=== PATIENT | male | born 1965 | race Caucasian/White ===

== ENCOUNTER 2017-11-04 12:58 | Inpatient (IN) | payer MEDICAID ==
[~2017-11-04] VITALS: Ht 177.8 cm; Wt 103.0 kg
[2017-11-04] MEDS ORDERED: ACETAMINOPHEN 325 MG TABLET ONE (13:27)
[2017-11-04] MEDS ORDERED: ACETAMINOPHEN 325 MG TABLET PO ONE (13:30)
[2017-11-04 13:37] LABS: BASOPHILS # (AUTO) 0.2 /CMM (0.0-0.2); BASOPHILS % (AUTO) 1.4 % (0.0-2.0); EOSINOPHILS # (AUTO) 0.1 /CMM (0.0-0.7); EOSINOPHILS % (AUTO) 0.6 % (0.0-6.0); HEMATOCRIT 29 % (39-51); HEMOGLOBIN 9.9 g/dL (13.5-17.5); LYMPHOCYTES # (AUTO) 0.5 /CMM (0.8-4.8); MEAN CORPUSCULAR HEMOGLOBIN 29 PG (26.0-33.0); MEAN CORPUSCULAR HGB CONC 34 g/dl (31.0-36.0); MEAN CORPUSCULAR VOLUME 86 fL (80-96); MONOCYTES # (AUTO) 1.5 /CMM (0.1-1.30); MONOCYTES % (AUTO) 8.7 % (2.0-12.0); NEUTROPHILS # (AUTO) 14.7 /CMM (1.8-8.9); NEUTROPHILS % (AUTO) 86.3 % (43.0-81.0); PLATELET COUNT (AUTO) 561 /CMM (150-450); RDW COEFFICIENT OF VARIATION 15.2 (11.5-15.0); RED BLOOD CELL COUNT(AUTO) 3.41 MIL/uL (4.5-6.0)
[2017-11-04 13:46] LABS: CALCIUM, SERUM 9.1 mg/dL (8.5-10.1); POTASSIUM 3.9 mmol/L (3.5-5.1)
[2017-11-04 13:48] LABS: CREATININE 9.4 mg/dL (0.6-1.3)
[2017-11-04 13:51] LABS: INR 1.21 (0.85-1.15)
[2017-11-04 14:52] LABS: APPEARANCE,URINE CLEAR (CLEAR); BILIRUBIN,URINE NEGATIVE (NEGATIVE); BLOOD, URINE 1+ Ery/uL (NEGATIVE); COLOR,URINE YELLOW (YELLOW); KETONES,URINE 1+ (NEGATIVE); LEUKOCYTE ESTERASE ,URINE NEGATIVE (NEGATIVE); NITRITE, URINE NEGATIVE (NEGATIVE); PH,URINE 8.5 (5.0-8.0); PROTEIN,URINE 3+ mg/dl (NEGATIVE); UGLUCOSE TRACE mg/dL (NEGATIVE); UROBILINOGEN,URINE 0.2 EU/dL (0.2)
[2017-11-04 14:56] LABS: BAND % (MANUAL) 2 % (0.0-5.0); LYMPHOCYTES % (MANUAL) 2 % (16-48); MONOCYTES % (MANUAL) 6 % (0-11.0); NEUTROPHILS % (MANUAL) 90 (42-76)
[2017-11-04 15:01] LABS: BACTERIA,URINE Few /HPF (None Seen); RBC,URINE 0-2 /HPF (0-2); SQUAMOUS EPITHELIAL CELL,UR Few /HPF (None Seen)
[2017-11-04] MEDS ORDERED: DEXAMETHASONE SOD PHOSPHATE 10 MG/ML VIAL IV ONE (16:30)
[2017-11-04] MEDS ORDERED: CLINDAMYCIN 600 MG in IV D5W 100 ML IV ONE (16:30)
[2017-11-04] MEDS ORDERED: DEXAMETHASONE SOD PHOSPHATE 10 MG/ML VIAL ONE (16:33)
[2017-11-04] MEDS ORDERED: IOHEXOL-300 100 ML VIAL IV ONE (16:38)
[2017-11-04] MEDS ORDERED: IV NS 0.9% 250 ML IV ONE (16:39)
[2017-11-04] MEDS ORDERED: DEXL30CA3 PO (18:43)
[2017-11-04] MEDS ORDERED: SEVE800T7 PO (18:43)
[2017-11-04] MEDS ORDERED: AMLO5TAB2 PO (18:43)
[2017-11-04] MEDS ORDERED: METO-356 PO (18:43)
[2017-11-04] MEDS ORDERED: ASPI-1169 PO (18:43)
[2017-11-04] MEDS ORDERED: MORPHINE SULFATE INJ 4 MG/ML DISP.SYRIN IV PRN (19:30)
[2017-11-04] MEDS ORDERED: ONDANSETRON HCL/PF 4 MG/2 ML VIAL IV PRN (19:30)
[2017-11-04] MEDS ORDERED: ACETAMINOPHEN 325 MG TABLET PO PRN (19:30)
[2017-11-04] MEDS ORDERED: HYDROCODONE/APAP 5/325MG 1 EACH TABLET PO PRN (19:30)
[2017-11-04 20:00] VITALS: BP 132/66
[2017-11-04 20:44] VITALS: BP 132/86
[2017-11-04] MEDS: PIPERACILLIN /TAZOBACTAM 2.25 G in IV D5W 50 ML IV SCH (21:59)
[2017-11-05] VITALS: BP_SYST 130; BP_SYST 153; BP_DIAS 79; BP_DIAS 80
[2017-11-05 04:00] VITALS: BP 136/82
[2017-11-05] MEDS: PIPERACILLIN /TAZOBACTAM 2.25 G in IV D5W 50 ML IV SCH ×2 (05:17→12:09)
[2017-11-05 06:00] VITALS: BP 136/82
[2017-11-05 06:18] LABS: HEMATOCRIT 26 % (39-51); HEMOGLOBIN 8.6 g/dL (13.5-17.5); LYMPHOCYTES # (AUTO) 0.4 /CMM (0.8-4.8); LYMPHOCYTES % (AUTO) 2.6 % (20.0-44.0); MEAN CORPUSCULAR HEMOGLOBIN 29 PG (26.0-33.0); MEAN CORPUSCULAR HGB CONC 33 g/dl (31.0-36.0); MEAN CORPUSCULAR VOLUME 86 fL (80-96); MONOCYTES # (AUTO) 0.6 /CMM (0.1-1.30); MONOCYTES % (AUTO) 3.6 % (2.0-12.0); NEUTROPHILS # (AUTO) 14.8 /CMM (1.8-8.9); NEUTROPHILS % (AUTO) 93.8 % (43.0-81.0); PLATELET COUNT (AUTO) 456 /CMM (150-450); RDW COEFFICIENT OF VARIATION 15.8 (11.5-15.0); RED BLOOD CELL COUNT(AUTO) 2.98 MIL/uL (4.5-6.0); WHITE BLOOD COUNT (AUTO) 15.8 K/uL (4.3-11.0)
[2017-11-05 06:36] LABS: CALCIUM, SERUM 8.5 mg/dL (8.5-10.1); MAGNESIUM 2.2 mg/dL (1.8-2.4); PHOSPHORUS 6.4 mg/dL (2.5-4.9); POTASSIUM 4.6 mmol/L (3.5-5.1)
[2017-11-05 06:38] LABS: CREATININE 11.4 mg/dL (0.6-1.3)
[2017-11-05 07:39] LABS: BAND % (MANUAL) 2 % (0.0-5.0); LYMPHOCYTES % (MANUAL) 4 % (16-48); MONOCYTES % (MANUAL) 2 % (0-11.0); NEUTROPHILS % (MANUAL) 92 (42-76)
[2017-11-05 08:00] VITALS: BP 133/75
[2017-11-05] MEDS: SEVELAMER CARBONATE 800 MG TABLET PO SCH ×2 (08:33→12:11)
[2017-11-05 08:35] VITALS: BP 133/75
[2017-11-05] MEDS ORDERED: AMLODIPINE BESYLATE 5 MG TABLET PO SCH (09:00)
[2017-11-05] MEDS ORDERED: Medication Not On Formulary EA (Dexlansoprazole (Dexilant) 30 MG) PO SCH (09:00)
[2017-11-05] MEDS ORDERED: ASPIRIN 81 MG TAB.CHEW PO SCH (09:00)
[2017-11-05] MEDS ORDERED: METOPROLOL SUCCINATE 25 MG TAB.SR.24H PO SCH (09:00)
[2017-11-05] MEDS ORDERED: DEXAMETHASONE SOD PHOSPHATE 4 MG/ML VIAL IV SCH (09:00)
== END 2017-11-05 14:04 | disposition home or self-care (01) | DRG 113 ==
LOC: ER 13:00 → TELE1 18:32 → MEDSG1 11-05 09:38
PROVIDERS: ADMIT Internal Medicine Nephrology; ATTEND Internal Medicine Nephrology
DX: J03.90 Acute tonsillitis, unspecified (principal); N18.6 End stage renal disease; K04.7 Periapical abscess without sinus; I13.11 Hypertensive heart and chronic kidney disease without heart failure, with stage 5 chronic kidney disease, or end stage renal disease; Z99.2 Dependence on renal dialysis; E83.9 Disorder of mineral metabolism, unspecified; D64.9 Anemia, unspecified
CPT/HCPCS: 36415; 70490-TC; 70491-TC; 71045-TC; 80048-TC; 81000-TC; 83605-TC; 83735-TC; 84100-TC; 85025-TC; 85730-TC; 87040-TC; 87070-TC; 87081-TC; 87086-TC; A4606; J1100; J2543; J3490; J7050; J7060; Q9967; Z7610

== ENCOUNTER 2017-11-08 12:43 | Inpatient (IN) | payer MEDICAID ==
[~2017-11-08] VITALS: Ht 177.8 cm; Wt 99.8 kg
[~2017-11-08 12:43] MED LIST: AMLO5TAB7 PO; ASPI-1169 PO; DEXL30CA3 PO; METO-356 PO; SEVE800T7 PO
--- NOTE | 2017-11-08 12:43 | NUR ---
SENT BY DR. DAWSON, RIGHT FACIAL SWELLING/PAIN, SORE THROAT TAKING AMOXIL WITH NO RELIEF
--- NOTE | 2017-11-08 13:12 | NUR ---
CALLED [facility] [phone] ITS AMAN
[2017-11-08 13:29] LABS: BASOPHILS % (AUTO) 0.1 % (0.0-2.0); EOSINOPHILS % (AUTO) 0.3 % (0.0-6.0); HEMATOCRIT 30 % (39-51); HEMOGLOBIN 9.6 g/dL (13.5-17.5); LYMPHOCYTES % (AUTO) 7.5 % (20.0-44.0); MEAN CORPUSCULAR HGB CONC 33 g/dl (31.0-36.0); MEAN CORPUSCULAR VOLUME 87 fL (80-96); MONOCYTES # (AUTO) 1.4 /CMM (0.1-1.30); MONOCYTES % (AUTO) 9.9 % (2.0-12.0); NEUTROPHILS # (AUTO) 11.2 /CMM (1.8-8.9); NEUTROPHILS % (AUTO) 82.2 % (43.0-81.0); PLATELET COUNT (AUTO) 544 /CMM (150-450); RDW COEFFICIENT OF VARIATION 16.3 (11.5-15.0); RED BLOOD CELL COUNT(AUTO) 3.41 MIL/uL (4.5-6.0); WHITE BLOOD COUNT (AUTO) 13.7 K/uL (4.3-11.0)
[2017-11-08] MEDS ORDERED: VANCOMYCIN 1 GM in IV D5W 250 ML IV ONE (13:30)
[2017-11-08] MEDS ORDERED: PIPERACILLIN /TAZOBACTAM 3.375 G in IV D5W 50 ML IV ONE (13:30)
[2017-11-08] MEDS ORDERED: AMOX500C2 PO (13:37)
--- NOTE | 2017-11-08 13:40 | NUR ---
REPORT GIVEN TO TITUS BECKFORD FOR JENNIFER UPON ADMISSION
[2017-11-08 13:46] LABS: CALCIUM, SERUM 8.4 mg/dL (8.5-10.1); CREATININE 7.2 mg/dL (0.6-1.3); POTASSIUM 3.5 mmol/L (3.5-5.1)
[2017-11-08 13:53] LABS: INR 1.06 (0.87-1.13)
[2017-11-08] MEDS ORDERED: FEE PK DOSING 1 MIN EA MC ONE (14:59)
[2017-11-08] MEDS ORDERED: VANCOMYCIN 500 MG in IV D5W 100 ML IV PRN (15:00)
--- NOTE | 2017-11-08 15:48 | NUR ---
MS RN ADMITTING NOTES PATIENT ADMITTED TO UNIT VIA GURNEY AT 1400. ALERT AND ORIENTED X4, AMBULATORY AND VERBALLY RESPONSIVE WITH NO C/O PAIN OR DISCOMFORTS AT THIS TIME. PATIENT ORIENTED TO UNIT AND TO HIS ROOM. PT WITH DIAGNOSIS OF RIGHT FACE INFECTION AND RENAL FAILURE. V/S CHECKD: BP 126/67, P 123, R 20, T 98.7 AND SP02 96%. HEAD TO TOE ASSESSMENT DONE. PT WITH INTACT SKIN, NOTED WITH RIGHT FACE SWELLING ( PHOTO TAKEN AND FILED ON CHART), WITH B/L KNEE NON-PITTING EDEMA +1, B/L FOOT NON-PITTING EDEMA +1. PT WITH IV ACCESS ON RIGHT AC G#20 AND PERMA-CATHETER ON UPPER RIGHT CHEST WALL. HE GOES TO HEMODIALYSIS 3X A WEEK AND HAD DIALYSIS TODAY. ALL SAFETY MEASURES INITIATED, BED PLACED ON LOW/LOCKED POSITION, CALL LIGHT AND BEDSIDE TABLE PLACED WITHIN PT'S REACH. WILL CONTINUE TO MONITOR PT.
[2017-11-08 15:51] VITALS: BP 126/75
[2017-11-08] MEDS: SEVELAMER CARBONATE 800 MG TABLET PO SCH (17:13)
[2017-11-08] MEDS: METOPROLOL SUCCINATE 25 MG TAB.SR.24H PO SCH (17:13)
[2017-11-08] MEDS: methylPREDNISolone SOD SUCC 40 MG/ML VIAL IV SCH (17:14)
--- NOTE | 2017-11-08 18:49 | NUR ---
MS RN CLOSING NOTES PATIENT AWAKE AND WATCHING TV IN BED. A/O X 4. AMBULATORY AND ABLE TO VERBALIZED NEEDS. RIGHT SIDE OF PT'S FACE REMAINS SWOLLEN, DRY AND WARM TO TOUCH. ON ROOM AIR, TOLERATING WELL WITH NO SOB NOTED. IV ACCESS ON LEFT AC INTACT AND PATENT, FLUSHES EASILY. HD CATHETER ON RIGHT UPPER CHEST WALL IN PLACE, PT S/P HD TODAY WITH NO DELAYED ADVERSE REACTIONS NOTED. BED IN LOW/LOCKED POSITION. CALL LIGHT AND BEDSIDE TABLE KEPT WITHIN PT'S REACH. ALL NEEDS AND CARE ATTENDED WELL. WILL ENDORSED TO LOG CUT OFF SAWYER NURSE FOR JENNIFER.
--- NOTE | 2017-11-08 19:30 | NUR ---
MS RN NOTES RECEIVED A/O X4,SITTING ON EDGE OF BED,DENIES PAIN,WITH RIGHT UPPER CW AFUA CATH FOR HD ACCESS,SALINE LOC LAC INTACT AND PATENT.AMBULATORY,HAD HD THIS MORNING SCHEDULED.CALL LIGHT IN REACH,NEEDS ANTICIPATED.
[2017-11-08 20:00] VITALS: BP_SYST 118; BP_SYST 141; BP_DIAS 81; BP_DIAS 82
[2017-11-08] MEDS: PIPERACILLIN /TAZOBACTAM 2.25 G in IV D5W 50 ML IV SCH (21:01)
--- NOTE | 2017-11-09 01:00 | NUR ---
MS RN NOTES SOUND ASLEEP,KEPT WARM AND COMFORTABLE.
[2017-11-09] MEDS: PIPERACILLIN /TAZOBACTAM 2.25 G in IV D5W 50 ML IV SCH ×3 (04:55→20:45)
--- NOTE | 2017-11-09 06:14 | NUR ---
MS RN NOTES FAIRLY RESTED AT NOC,IV ABX TOLERATED WELL.DENIES PAIN.SALINE LOCK LEFT AC REMAINS PATENT.CALL LIGHT IN REACH,NEEDS ATTENDED.WILL ENDORSE TO DAY NURSE FOR JENNIFER.
--- NOTE | 2017-11-09 07:48 | NUR ---
MS RN OPENING NOTE PATIENT IS ALERT AND ORIENTED x4. NO PAIN AT THIS TIME. NO SOB OR DISTRESS NOTED. CALL LIGHT WITHIN REACH. SAFETY MEASURES IMPLEMENTED. ABLE TO COMMUNICATE NEEDS. IV INTACT AND PATENT NO REDNESS OR SWELLING NOTED. RIGHT UPPER CHEST WALL HD CATHETER CLEAN, DRY AND INTACT. WILL CONTINUE TO MONITOR THROUGHOUT SHIFT
[2017-11-09 08:00] VITALS: BP 119/72
[2017-11-09] MEDS: PANTOPRAZOLE 40 MG TABLET.DR PO SCH (08:14)
[2017-11-09] MEDS: SEVELAMER CARBONATE 800 MG TABLET PO SCH ×3 (08:15→17:06)
[2017-11-09] MEDS: ASPIRIN 81 MG TAB.CHEW PO SCH (08:15)
[2017-11-09] MEDS: methylPREDNISolone SOD SUCC 40 MG/ML VIAL IV SCH ×3 (08:15→17:06)
[2017-11-09] MEDS ORDERED: AMOXICILLIN TRIHYDRATE 500 MG CAPSULE PO SCH (09:00)
[2017-11-09 16:00] VITALS: BP 123/68
[2017-11-09] MEDS: METOPROLOL SUCCINATE 25 MG TAB.SR.24H PO SCH (17:06)
[2017-11-09] MEDS: LACTOBACILLUS RHAMNOSUS GG 1 EACH CAP.SPRINK PO SCH (17:06)
--- NOTE | 2017-11-09 18:35 | NUR ---
MS RN CLOSING NOTE PATIENT IS RESTING COMFORTABLY AT THIS TIME. NO PAIN NOTED. NO SOB OR DISTRESS NOTED, ON ROOM AIR AT 98% TOLERATING WELL. ABLE TO COMMUNICATE NEEDS. ALL DUE MEDICATIONS GIVEN ORDERED. ALL NURSING CARE NEEDS ATTENDED TO NEEDED. IV INTACT AND PATENT, NO REDNESS OR SWELLING PRESENT AT THIS TIME. WILL HAVE AM LABS, HEMODIALYSIS, AND EPOGEN GIVEN TOMORROW DURING AM SHIFT. RIGHT UPPER CHESTWALL HD CATH KEPT CLEAN,DRY AND INTACT. CALL LIGHT WITHIN REACH AT ALL TIMES. SAFETY MEASURES IMPLEMENTED. WILL ENDORSE TO BRUSH CLEARING LABORER NURSE FOR JENNIFER
[2017-11-09 19:50] VITALS: BP 125/80
--- NOTE | 2017-11-09 19:51 | NUR ---
RECIECED ALERT AND ORIENTATED SPEECH CLEAR VISITING WITH HIS SON. DENIES PAIN RIGHT CHEEK SLIGHTLY LARGER RIGHT SIDE THEN THE LEFT. SWALLOWS W/O PROBLEMS CALL LIGHT WITHEN HIS REACH AND USAGE REVIEWED WITH HIM
[2017-11-10 04:48] VITALS: BP 117/66
--- NOTE | 2017-11-10 04:55 | NUR ---
mr. whitney slept thru the night. perm cath right c/w with dressing cdi. right side of his face sliglty swollen denies tenderness atb given as ordered no c/ pain
[2017-11-10] MEDS: PIPERACILLIN /TAZOBACTAM 2.25 G in IV D5W 50 ML IV SCH ×3 (05:01→21:52)
[2017-11-10 06:50] LABS: HEMATOCRIT 29 % (39-51); HEMOGLOBIN 9.4 g/dL (13.5-17.5); LYMPHOCYTES # (AUTO) 0.8 /CMM (0.8-4.8); LYMPHOCYTES % (AUTO) 5.5 % (20.0-44.0); MEAN CORPUSCULAR HGB CONC 32 g/dl (31.0-36.0); MEAN CORPUSCULAR VOLUME 88 fL (80-96); MONOCYTES # (AUTO) 0.5 /CMM (0.1-1.30); MONOCYTES % (AUTO) 3.1 % (2.0-12.0); NEUTROPHILS % (AUTO) 91.4 % (43.0-81.0); PLATELET COUNT (AUTO) 517 /CMM (150-450); RDW COEFFICIENT OF VARIATION 16.5 (11.5-15.0); RED BLOOD CELL COUNT(AUTO) 3.33 MIL/uL (4.5-6.0); WHITE BLOOD COUNT (AUTO) 15.3 K/uL (4.3-11.0)
[2017-11-10 06:55] LABS: MAGNESIUM 2.4 mg/dL (1.8-2.4); POTASSIUM 4.8 mmol/L (3.5-5.1)
[2017-11-10 06:58] LABS: CREATININE 11.9 mg/dL (0.6-1.3)
[2017-11-10] MEDS: SEVELAMER CARBONATE 800 MG TABLET PO SCH ×3 (07:50→18:08)
[2017-11-10] MEDS: PANTOPRAZOLE 40 MG TABLET.DR PO SCH (07:50)
[2017-11-10] MEDS: ASPIRIN 81 MG TAB.CHEW PO SCH (08:04)
[2017-11-10] MEDS: LACTOBACILLUS RHAMNOSUS GG 1 EACH CAP.SPRINK PO SCH ×2 (08:04→18:08)
[2017-11-10] MEDS: methylPREDNISolone SOD SUCC 40 MG/ML VIAL IV SCH ×3 (08:04→18:09)
--- NOTE | 2017-11-10 08:12 | NUR ---
MS RN NOTES PATIENT IS A/O X4, BREAKFAST SERVED WITH GOOD APPETITE. LEFT AC IVC INTACT PATENT AND INTACT, FLUSHES WELL. RIGHT CHEST WALL HD CATH INTACT, NO BLEEDING NOTED. DUE MEDS GIVEN. CALL LIGHT WITHIN REACH, WILL CONT TO MONITOR.
[2017-11-10 08:20] VITALS: BP 117/76
[2017-11-10] MEDS ORDERED: EPOETIN ALFA (10,000 UNIT) 10,000 UNIT/ML VIAL IV ONE (11:30)
[2017-11-10 16:24] VITALS: BP 143/79
[2017-11-10] MEDS: METOPROLOL SUCCINATE 25 MG TAB.SR.24H PO SCH (18:08)
--- NOTE | 2017-11-10 18:58 | NUR ---
MS RN CLOSING NOTES PATIENT REMAINS STABLE, CONT ON ANTIBIOTIC ASA ORDERED, AFEBRILE DURING THE SHIFT. HD TOMORROW PER DR. YORDY CASANOVA, PATIENT IS AWARE. DENIES PAIN. WILL ENDORSE TO ONCOMING RN.
--- NOTE | 2017-11-10 19:30 | NUR ---
RN NOTE; RECEIVED PT IN BED AWAKE AND ALERT W/ FAMILY AT THE BED SIDE. BREATHING EVENLY. NO SOB. NAD .SKIN WARM AND DRY. NO C/O PAIN OR DISCOMFORT. NO FACIAL REDNESS OR SWELLING NOTED . NEEDS ATTENDED. CALL LIGHT WITHIN REACH.W ILL CONT TO MONITOR
[2017-11-10 20:00] VITALS: BP 137/85
[2017-11-11] MEDS: PIPERACILLIN /TAZOBACTAM 2.25 G in IV D5W 50 ML IV SCH ×3 (05:40→20:59)
--- NOTE | 2017-11-11 06:34 | NUR ---
RN NOTE; PT IN BED DOZING INTERMITTENTLY. BREATHING EVENLY. NO SOB. NO ACUTE EVENT DURING THE NIGHT. NO C/O PAIN OR DISCOMFORT. ON IV ATB PRASHANT WELL. NEEDS ATTENDED. BED LOW LOCKED .CALL LIGHT WITHIN REACH . WILL CONT TO MONITOR AND WILL ENDORSE TO AM SHIFT FOR JENNIFER .
[2017-11-11 06:37] LABS: HEMATOCRIT 30 % (39-51); HEMOGLOBIN 9.9 g/dL (13.5-17.5); LYMPHOCYTES # (AUTO) 1.1 /CMM (0.8-4.8); MEAN CORPUSCULAR HGB CONC 33 g/dl (31.0-36.0); MEAN CORPUSCULAR VOLUME 88 fL (80-96); MONOCYTES # (AUTO) 0.5 /CMM (0.1-1.30); MONOCYTES % (AUTO) 2.4 % (2.0-12.0); NEUTROPHILS # (AUTO) 20.3 /CMM (1.8-8.9); NEUTROPHILS % (AUTO) 92.6 % (43.0-81.0); PLATELET COUNT (AUTO) 497 /CMM (150-450); RED BLOOD CELL COUNT(AUTO) 3.45 MIL/uL (4.5-6.0); WHITE BLOOD COUNT (AUTO) 21.9 K/uL (4.3-11.0)
[2017-11-11 07:17] LABS: MAGNESIUM 2.4 mg/dL (1.8-2.4); PHOSPHORUS 7.7 mg/dL (2.5-4.9); POTASSIUM 5.5 mmol/L (3.5-5.1)
[2017-11-11 07:24] LABS: CREATININE 14.4 mg/dL (0.6-1.3)
[2017-11-11] MEDS: SEVELAMER CARBONATE 800 MG TABLET PO SCH ×3 (07:45→18:06)
[2017-11-11] MEDS: PANTOPRAZOLE 40 MG TABLET.DR PO SCH (07:45)
[2017-11-11 08:00] VITALS: BP 114/78
[2017-11-11] MEDS: methylPREDNISolone SOD SUCC 40 MG/ML VIAL IV SCH ×2 (08:05→12:53)
[2017-11-11] MEDS: ASPIRIN 81 MG TAB.CHEW PO SCH (08:05)
[2017-11-11] MEDS: LACTOBACILLUS RHAMNOSUS GG 1 EACH CAP.SPRINK PO SCH ×2 (08:05→18:06)
[2017-11-11 08:08] LABS: BAND % (MANUAL) 1 % (0.0-5.0); LYMPHOCYTES % (MANUAL) 7 % (16-48); MONOCYTES % (MANUAL) 1 % (0-11.0); NEUTROPHILS % (MANUAL) 91 (42-76)
--- NOTE | 2017-11-11 08:09 | NUR ---
MS RN NOTES PATIENT IS A/O X4, BREAKFAST SERVED WITH GOOD APPETITE. LEFT AC IVC INTACT PATENT AND INTACT, FLUSHES WELL. RIGHT CHEST WALL HD CATH INTACT, NO BLEEDING NOTED. DUE MEDS GIVEN. ABNORMAL LAB RESULT, WILL INFORM MD. DENIES PAIN, CALL LIGHT WITHIN REACH, WILL CONT TO MONITOR.
[2017-11-11 16:00] VITALS: BP 134/80
[2017-11-11] MEDS: METOPROLOL SUCCINATE 25 MG TAB.SR.24H PO SCH (18:07)
--- NOTE | 2017-11-11 18:28 | NUR ---
MS RN CLOSING NOTES HD TODAY WITH 1.5L FLUID OUTPUT PER DIALYSIS NURSE. PATIENT TOLERATED DIALYSIS WITH BP 116/59 P76 POST HD. SEEN BY DR. CASANOVA TODAY, JACK WAS DC, PHYSICIAN CONSULT ENT FOR FACIAL CELLULITIS. DENIES PAIN. WILL ENDORSE TO ONCOMING RN.
--- NOTE | 2017-11-11 19:30 | NUR ---
RN NOTE; RECEIVED PT IN BED AWAKE AND ALERT .BREATHING EVENLY. NO SOB. NAD .SKIN WARM AND DRY. NO C/O PAIN OR DISCOMFORT. NO FACIAL REDNESS OR SWELLING NOTED . NO THROAT PAIN. REPORTED VOICE CHANGE. NEEDS ATTENDED. CALL LIGHT WITHIN REACH.WILL CONT TO MONITOR
[2017-11-11 20:00] VITALS: BP 132/68
[2017-11-12] MEDS: PIPERACILLIN /TAZOBACTAM 2.25 G in IV D5W 50 ML IV SCH ×2 (05:12→12:14)
--- NOTE | 2017-11-12 06:35 | NUR ---
PT IN BED STABLE, NO ACUTE EVENT DURING THE NIGHT, NO C/O PAIN OR DISCOMFORT . WILL CONT TO MONITOR AND WILL ENDORSE TO AM SHIFT FOR JENNIFER.
[2017-11-12 06:39] LABS: HEMATOCRIT 31 % (39-51); HEMOGLOBIN 9.9 g/dL (13.5-17.5); LYMPHOCYTES # (AUTO) 1.1 /CMM (0.8-4.8); LYMPHOCYTES % (AUTO) 4.9 % (20.0-44.0); MEAN CORPUSCULAR HGB CONC 32 g/dl (31.0-36.0); MEAN CORPUSCULAR VOLUME 89 fL (80-96); MONOCYTES # (AUTO) 1.1 /CMM (0.1-1.30); MONOCYTES % (AUTO) 4.7 % (2.0-12.0); NEUTROPHILS # (AUTO) 20.5 /CMM (1.8-8.9); NEUTROPHILS % (AUTO) 90.4 % (43.0-81.0); PLATELET COUNT (AUTO) 436 /CMM (150-450); RDW COEFFICIENT OF VARIATION 17.3 (11.5-15.0); RED BLOOD CELL COUNT(AUTO) 3.48 MIL/uL (4.5-6.0); WHITE BLOOD COUNT (AUTO) 22.6 K/uL (4.3-11.0)
[2017-11-12 06:58] LABS: CALCIUM, SERUM 8.1 mg/dL (8.5-10.1); MAGNESIUM 2.2 mg/dL (1.8-2.4); PHOSPHORUS 7.4 mg/dL (2.5-4.9); POTASSIUM 5.2 mmol/L (3.5-5.1)
[2017-11-12 06:59] LABS: CREATININE 11.1 mg/dL (0.6-1.3)
--- NOTE | 2017-11-12 07:30 | NUR ---
MS RN OPENING NOTE PATIENT IS ALERT AND ORIENTED x4. NO PAIN AT THIS TIME. NO SOB OR DISTRESS NOTED. CALL LIGHT WITHIN REACH. SAFETY MEASURES IMPLEMENTED. ABLE TO COMMUNICATE NEEDS. PENDING LABS THIS MORNING. AWAITING ENT CONSULT. HAS IV ON LEFT AC INTACT AND PATENT, HD CATH ON RIGHT UPPER CHEST WELL CLEAN DRY AND INTACT. WILL CONTINUE TO MONITOR THROUGHOUT SHIFT
[2017-11-12 08:00] VITALS: BP 145/88
[2017-11-12] MEDS: SEVELAMER CARBONATE 800 MG TABLET PO SCH ×2 (08:32→12:14)
[2017-11-12] MEDS: LACTOBACILLUS RHAMNOSUS GG 1 EACH CAP.SPRINK PO SCH (08:32)
[2017-11-12] MEDS: PANTOPRAZOLE 40 MG TABLET.DR PO SCH (08:32)
[2017-11-12] MEDS: ASPIRIN 81 MG TAB.CHEW PO SCH (08:32)
[2017-11-12 09:20] LABS: BAND % (MANUAL) 1 % (0.0-5.0); LYMPHOCYTES % (MANUAL) 4 % (16-48); MONOCYTES % (MANUAL) 6 % (0-11.0); MYELOCYTES % 1 % (0-0); NEUTROPHILS % (MANUAL) 88 (42-76)
--- NOTE | 2017-11-12 15:04 | NUR ---
MS MACHINE I COREMAKER NOTE PATIENT IS ALERT AND ORIENTED x4. NO PAIN AT THIS TIME. NO SOB OR DISTRESS NOTED. CALL LIGHT WITHIN REACH AT ALL TIMES. SAFETY MEASURES IMPLEMENTED. ABLE TO COMMUNICATE NEEDS. IV REMOVED, SKIN INTACT. PATIENT REFUSED FACIAL PICTURE. ALL DUE MEDICATIONS GIVEN ORDERED BY MD. ALL NURSING CARE NEEDS ATTENDED TO NEEDED. DISCHARGE INSTRUCTIONS GIVEN TO PATIENT AT BEDSIDE. ALL INSTRUCTIONS REPEATED BACK. ALL BELONGINGS WITH PATIENT AT BEDSIDE AND ACCOUNTED FOR AT DISCHARGE. LEFT VIA PRIVATE CAR
== END 2017-11-12 15:00 | disposition home or self-care (01) | DRG 383 ==
LOC: ER 12:45 → MEDSG2 13:44
PROVIDERS: ADMIT Internal Medicine Nephrology; ATTEND Internal Medicine Nephrology
PROC: 5A1D70Z Performance of Urinary Filtration, Intermittent, Less than 6 Hours Per Day (ICD-10-PCS; principal; 2017-11-11)
DX: L03.211 Cellulitis of face (principal); I12.0 Hypertensive chronic kidney disease with stage 5 chronic kidney disease or end stage renal disease; N18.6 End stage renal disease; J03.90 Acute tonsillitis, unspecified; D64.9 Anemia, unspecified; E83.39 Other disorders of phosphorus metabolism; E87.5 Hyperkalemia; Z99.2 Dependence on renal dialysis; M27.2 Inflammatory conditions of jaws; E83.9 Disorder of mineral metabolism, unspecified; D72.829 Elevated white blood cell count, unspecified; T38.0X5A Adverse effect of glucocorticoids and synthetic analogues, initial encounter; Y92.89 Other specified places as the place of occurrence of the external cause
CPT/HCPCS: 36415; 80048-TC; 80202-TC; 83605-TC; 83735-TC; 84100-TC; 85025-TC; 85730-TC; 87040-TC; 87081-TC; 90935-TC; A4606; J0885; J2543; J2920; J3370; J7060; Z7610

== ENCOUNTER 2019-02-23 10:15 | Emergency (ER) | payer SELFPAY ==
[~2019-02-23] VITALS: Ht 175.3 cm; Wt 102.1 kg
[~2019-02-23 10:15] MED LIST changes: -AMLO5TAB7 PO; +AMOX500C2 PO
[2019-02-23] MEDS ORDERED: IPRATROPIUM NEB FS 0.5 MG/2.5 ML AMPUL.NEB ONE (10:50)
[2019-02-23] MEDS ORDERED: ALBUTEROL FS 2.5 MG/3 ML VIAL.NEB ONE (10:50)
[2019-02-23 11:00] VITALS: BP 132/79
[2019-02-23] MEDS ORDERED: IPRATROPIUM NEB FS 0.5 MG/2.5 ML AMPUL.NEB NEB ONE (11:00)
[2019-02-23] MEDS ORDERED: ALBUTEROL FS 2.5 MG/3 ML VIAL.NEB NEB ONE (11:00)
--- NOTE | 2019-02-23 11:10 | NUR ---
BREATHING TREATMENT COMPLETED,VERBALIZED HE FEELS BETTER. VERBALIZED UNDERSTANDING OG ACI
== END 2019-02-23 11:13 | disposition home or self-care (01) ==
LOC: ER 10:24
DX: R06.02 Shortness of breath (principal); R12 Heartburn; I12.0 Hypertensive chronic kidney disease with stage 5 chronic kidney disease or end stage renal disease; N18.6 End stage renal disease; Z99.2 Dependence on renal dialysis

== ENCOUNTER 2019-03-08 15:38 | Emergency (ER) | payer SELFPAY ==
[~2019-03-08] VITALS: Ht 175.3 cm; Wt 104.3 kg
--- NOTE | 2019-03-08 15:50 | NUR ---
53 YEAR OLD MALE C/O DIZZINESS AFTER LUNCH 1 HOUR [employer], PT STATES "I THINK MY BP IS HIGH". ALERT AND ORIENTED X4 BREATHING EVEN AND UNLABORED WITH NO DISTRESS NOTED. SKIN INTACT. PATIENT ABLE TO AMBULATE WITH STEADY GAIT. AWAITING TO BE SEEN BY
--- NOTE | 2019-03-08 15:54 | NUR ---
X-RAY TECH AT BEDSIDE
[2019-03-08 16:34] VITALS: BP 143/75
== END 2019-03-08 16:41 | disposition home or self-care (01) ==
LOC: ER 15:39
DX: R42 Dizziness and giddiness (principal); I12.0 Hypertensive chronic kidney disease with stage 5 chronic kidney disease or end stage renal disease; N18.6 End stage renal disease; Z99.2 Dependence on renal dialysis; Z79.82 Long term (current) use of aspirin
CPT/HCPCS: 71045-TC

== ENCOUNTER 2021-05-22 17:04 | Emergency (ER) | payer MEDICAID, OTHER ==
[~2021-05-22] VITALS: Ht 175.3 cm; Wt 92.5 kg
[~2021-05-22 17:04] MED LIST changes: -METO-356 PO; +METO25TA4 PO
[2021-05-22 17:16] VITALS: BP 133/73
[2021-05-22] MEDS ORDERED: ACETAMINOPHEN ES 500 MG TABLET ONE (18:34)
[2021-05-22] MEDS ORDERED: ACETAMINOPHEN 650 MG/20.3 ML UDC PO ONE (19:00)
--- NOTE | 2021-05-22 19:05 | NUR ---
Patient discharged to home in stable condition. Written and verbal after care instructions given. Patient verbalizes understanding of instruction.
== END 2021-05-22 19:05 | disposition home or self-care (01) ==
LOC: ER 17:23
DX: S16.1XXA Strain of muscle, fascia and tendon at neck level, initial encounter (principal); S09.8XXA Other specified injuries of head, initial encounter; E07.9 Disorder of thyroid, unspecified; I12.0 Hypertensive chronic kidney disease with stage 5 chronic kidney disease or end stage renal disease; E11.22 Type 2 diabetes mellitus with diabetic chronic kidney disease; N18.6 End stage renal disease; R51.9 Headache, unspecified; Z79.82 Long term (current) use of aspirin; Z79.899 Other long term (current) drug therapy; V49.49XA Driver injured in collision with other motor vehicles in traffic accident, initial encounter; Y93.89 Activity, other specified; Y92.488 Other paved roadways as the place of occurrence of the external cause; Y99.8 Other external cause status
CPT/HCPCS: 70450-TC; 72125-TC